=== PATIENT | female | born 1950 | race Hispanic/Latino ===

== ENCOUNTER 2021-04-30 08:40 | Inpatient (IN) | payer MEDICARE ==
[~2021-04-30] VITALS: Ht 162.6 cm; Wt 45.4 kg
[2021-04-30 09:16] LABS: BASOPHILS % (AUTO) 0.1 % (0.0-5.0); EOSINOPHILS % (AUTO) 0.1 % (0.0-8.0); HEMATOCRIT 51.6 % (36-48); MEAN CORPUSCULAR HEMOGLOBIN 32.5 pg (27.0-33.0); MEAN CORPUSCULAR HGB CONC 31.4 g/dL (32.0-36.0); MEAN CORPUSCULAR VOLUME 103.4 fL (79-99); MONOCYTES % (AUTO) 9.1 % (3.0-13.0); PLATELET COUNT (AUTO) 202 K/uL (130-400); RED BLOOD CELL COUNT(AUTO) 4.99 MIL/uL (4.00-5.50); RED CELL DISTRIBUTION WIDTH 12.7 % (11.0-15.5); WHITE BLOOD COUNT (AUTO) 13.8 K/uL (4.8-10.8)
[2021-04-30] MEDS ORDERED: IPRATROPIUM/ALBUTEROL SULFATE 3 ML SOLUTION IH ONE (09:21)
[2021-04-30 09:22] LABS: CREATININE 0.9 mg/dL (0.5-1.5); POTASSIUM 5.1 mmol/L (3.5-5.1)
[2021-04-30 09:30] LABS: ABG BASE EXCESS 9.2 mmol/L (-2.0-3.0); ABG OXYGEN SATURATION 88.2 % (95.0-99.0); ABG PCO2 97 mmHg (32-45)
[2021-04-30] MEDS ORDERED: IPRATROPIUM/ALBUTEROL SULFATE 3 ML SOLUTION IH SCH (09:30)
[2021-04-30 09:32] LABS: ALBUMIN 3.5 g/dL (3.5-5.0); BILIRUBIN,TOTAL 0.5 mg/dL (0.2-1.0); TOTAL PROTEIN, SERUM 6.7 g/dL (6.0-8.3)
[2021-04-30 09:49] LABS: B-TYPE NATRIURETIC PEPTIDE 179 pg/mL (0-100)
[2021-04-30] MEDS ORDERED: SOLU-MEDROL 40MG VIAL IVP SCH (10:30)
[2021-04-30] MEDS ORDERED: 0.9%NACL 1000ML 1,000 ML IV SCH ×2 (10:30→11:00)
[2021-04-30] MEDS ORDERED: ONDANSETRON 4MG INJ IVP PRN (11:00)
[2021-04-30] MEDS ORDERED: LABETALOL 20MG SYG IV PRN (11:00)
[2021-04-30] MEDS ORDERED: ACETAMINOPHEN 325 MG TAB PO PRN (11:00)
[2021-04-30] MEDS ORDERED: LACTULOSE 20 GM/30 ML UDCUP PO PRN (11:00)
[2021-04-30] MEDS ORDERED: DILTIAZEM 125MG+100 ML NS 125 ML IV PRN (11:00)
[2021-04-30] MEDS ORDERED: SOLU-MEDROL 125MG VIAL IVP SCH (11:00)
[2021-04-30] MEDS ORDERED: CEFTRIAXONE 1G VIAL IVP SCH (11:19)
[2021-04-30] MEDS ORDERED: DOXYCYCLINE 100MG+NS 250ML 250 ML IV SCH (11:30)
[2021-04-30] MEDS: IPRATROPIUM/ALBUTEROL SULFATE 3 ML SOLUTION IH SCH ×3 (13:42→22:33)
[2021-04-30 15:28] LABS: ABG BASE EXCESS 7.7 mmol/L (-2.0-3.0); ABG HCO3 35.3 mmol/L (21.0-28.0); ABG OXYGEN SATURATION 93.1 % (95.0-99.0); ABG PCO2 62 mmHg (32-45)
[2021-04-30] MEDS ORDERED: ALBUHFA IH (15:59)
[2021-04-30] MEDS ORDERED: LISI40TA9 PO (15:59)
[2021-04-30] MEDS ORDERED: IPRA0.2S54 IH (15:59)
[2021-04-30] MEDS ORDERED: BUDE10.22 IH (15:59)
[2021-04-30] MEDS ORDERED: PARO-37 PO (15:59)
[2021-04-30] MEDS: BUDESONIDE 0.5 MG/2 ML INH IH SCH (19:00)
[2021-04-30] MEDS ORDERED: DOXYCYCLINE 100MG+NS 250ML IV SCH (21:00)
[2021-04-30] MEDS: SOLU-MEDROL 125MG VIAL IVP SCH (21:00)
[2021-04-30] MEDS: DOXYCYCLINE 100MG+NS 250ML 250 ML IV SCH (21:08)
[2021-04-30] MEDS ORDERED: SODIUM CHLORIDE 3% FOR INHALATION 4 ML/AMP VIAL.NEB IH ONE (22:51)
[2021-05-01] MEDS: SOLU-MEDROL 125MG VIAL IVP SCH ×2 (02:00→09:58)
[2021-05-01] MEDS: IPRATROPIUM/ALBUTEROL SULFATE 3 ML SOLUTION IH SCH ×5 (02:29→23:55)
[2021-05-01] MEDS: BUDESONIDE 0.5 MG/2 ML INH IH SCH ×2 (06:00→20:43)
[2021-05-01] MEDS ORDERED: SODIUM CHLORIDE 3% FOR INHALATION 4 ML/AMP VIAL.NEB IH ONE ×2 (06:15→19:09)
[2021-05-01 07:43] LABS: ABG BASE EXCESS 10.1 mmol/L (-2.0-3.0); ABG HCO3 35.9 mmol/L (21.0-28.0); ABG OXYGEN SATURATION 89.2 % (95.0-99.0); ABG PCO2 52 mmHg (32-45)
[2021-05-01 07:44] LABS: HEMOGLOBIN A1C 6.2 % (4.0-6.0); THYROID STIMULATING HORMONE 0.54 uIU/mL (0.36-3.74)
[2021-05-01 09:40] LABS: HEMATOCRIT 45.9 % (36-48); MEAN CORPUSCULAR HEMOGLOBIN 32.9 pg (27.0-33.0); MEAN CORPUSCULAR HGB CONC 32.9 g/dL (32.0-36.0); RED BLOOD CELL COUNT(AUTO) 4.59 MIL/uL (4.00-5.50); RED CELL DISTRIBUTION WIDTH 12.6 % (11.0-15.5); WHITE BLOOD COUNT (AUTO) 5.8 K/uL (4.8-10.8)
[2021-05-01 09:46] LABS: POTASSIUM 4.3 mmol/L (3.5-5.1)
[2021-05-01] MEDS: DOXYCYCLINE 100MG+NS 250ML 250 ML IV SCH (09:58)
[2021-05-01] MEDS: ENOXAPARIN SODIUM 40 MG/0.4 ML SYRINGE SQ SCH (09:58)
[2021-05-01] MEDS: METOPROLOL TARTRATE 25 MG TAB PO SCH ×2 (12:27→20:41)
[2021-05-01] MEDS: AZITHROMYCIN 250 MG TABLET PO SCH (15:30)
[2021-05-01] MEDS ORDERED: IPRATROPIUM/ALBUTEROL SULFATE 3 ML SOLUTION IH SCH (16:00)
[2021-05-01] MEDS ORDERED: METOPROLOL TARTRATE 25 MG TAB PO SCH (21:00)
[2021-05-02 06:15] LABS: HEMATOCRIT 48.3 % (36-48); MEAN CORPUSCULAR HGB CONC 31.5 g/dL (32.0-36.0); MEAN CORPUSCULAR VOLUME 101.7 fL (79-99); RED BLOOD CELL COUNT(AUTO) 4.75 MIL/uL (4.00-5.50); RED CELL DISTRIBUTION WIDTH 12.7 % (11.0-15.5)
[2021-05-02 06:28] LABS: CREATININE 0.8 mg/dL (0.5-1.5); POTASSIUM 4.4 mmol/L (3.5-5.1)
[2021-05-02] MEDS: BUDESONIDE 0.5 MG/2 ML INH IH SCH ×2 (06:31→18:17)
[2021-05-02] MEDS: IPRATROPIUM/ALBUTEROL SULFATE 3 ML SOLUTION IH SCH ×4 (06:31→23:36)
[2021-05-02] MEDS: PREDNISONE 20 MG TABLET PO SCH (09:38)
[2021-05-02] MEDS: ENOXAPARIN SODIUM 40 MG/0.4 ML SYRINGE SQ SCH (09:39)
[2021-05-02] MEDS: METOPROLOL TARTRATE 25 MG TAB PO SCH ×2 (09:39→20:24)
[2021-05-02] MEDS: AZITHROMYCIN 250 MG TABLET PO SCH (16:31)
[2021-05-02 23:10] VITALS: BP 119/82
[2021-05-03 04:00] VITALS: BP 126/87
[2021-05-03 05:42] LABS: HEMATOCRIT 45.6 % (36-48); MEAN CORPUSCULAR HEMOGLOBIN 32.5 pg (27.0-33.0); MEAN CORPUSCULAR HGB CONC 32.7 g/dL (32.0-36.0); MEAN CORPUSCULAR VOLUME 99.3 fL (79-99); RED BLOOD CELL COUNT(AUTO) 4.59 MIL/uL (4.00-5.50); RED CELL DISTRIBUTION WIDTH 12.6 % (11.0-15.5); WHITE BLOOD COUNT (AUTO) 11.9 K/uL (4.8-10.8)
[2021-05-03 05:47] LABS: CREATININE 0.8 mg/dL (0.5-1.5); POTASSIUM 3.9 mmol/L (3.5-5.1)
[2021-05-03] MEDS: BUDESONIDE 0.5 MG/2 ML INH IH SCH (06:10)
[2021-05-03] MEDS: IPRATROPIUM/ALBUTEROL SULFATE 3 ML SOLUTION IH SCH (06:10)
[2021-05-03 07:34] VITALS: BP 128/78
[2021-05-03] MEDS: ENOXAPARIN SODIUM 40 MG/0.4 ML SYRINGE SQ SCH (09:50)
[2021-05-03] MEDS: PREDNISONE 20 MG TABLET PO SCH (09:50)
[2021-05-03] MEDS: METOPROLOL TARTRATE 25 MG TAB PO SCH (09:51)
[2021-05-03 11:10] VITALS: BP 122/89
[2021-05-03] MEDS ORDERED: APIXABAN 5 MG TABLET PO ONE (13:30)
[2021-05-03] MEDS ORDERED: APIXABAN 5 MG TABLET PO SCH (13:30)
[2021-05-03] MEDS ORDERED: IPRATROPIUM/ALBUTEROL SULFATE 3 ML SOLUTION IH SCH (14:00)
[2021-05-03] MEDS: AZITHROMYCIN 250 MG TABLET PO SCH (15:17)
[2021-05-03 15:26] VITALS: BP 132/89
== END 2021-05-03 18:00 | DRG 189 ==
LOC: EDH 08:40 → EDHIP 10:55 → 4CH 05-02 22:38
PROVIDERS: ADMIT Internal Medicine; ATTEND Internal Medicine
PROC: 5A09357 Assistance with Respiratory Ventilation, Less than 24 Consecutive Hours, Continuous Positive Airway Pressure (ICD-10-PCS; principal; 2021-04-30)
DX: J96.01 Acute respiratory failure with hypoxia (principal); J44.1 Chronic obstructive pulmonary disease with (acute) exacerbation; E87.2 Acidosis; D68.59 Other primary thrombophilia; J96.02 Acute respiratory failure with hypercapnia; F41.9 Anxiety disorder, unspecified; F17.210 Nicotine dependence, cigarettes, uncomplicated; I48.0 Paroxysmal atrial fibrillation; I10 Essential (primary) hypertension; Z20.822 Contact with and (suspected) exposure to COVID-19; Z88.0 Allergy status to penicillin; Z98.49 Cataract extraction status, unspecified eye
CPT/HCPCS: 36415; 36600; 71045; 74230; 80048; 80053; 82435; 82803; 82947; 83036; 83605; 83880; 84132; 84145; 84295; 84443; 84484; 85018; 85025; 85027; 87486; 87581; 87633; 87635; 87798; 92610; 93005; 94640; 94660; 94664; 94667; 94668; 97039; 99291; C9803; G0378; J0696; J1650; J2920; J2930; J3490